=== PATIENT | female | born 1980 ===

== ENCOUNTER 2021-12-16 13:11 | Inpatient (IN) | payer SELFPAY ==
[2021-12-16] MEDS ORDERED: LACTATED RINGERS 1,000 ML ONE (14:59)
[2021-12-16] MEDS ORDERED: TERBUTALINE 1 MG/1 ML INJ SUB-Q PRN (15:21)
[2021-12-16] MEDS ORDERED: CARBOPROST TROMETHAMINE 250 MCG/1 ML INJ IM PRN (15:21)
[2021-12-16] MEDS ORDERED: ACETAMINOPHEN 325 MG TAB PO PRN ×2 (15:21→18:46)
[2021-12-16] MEDS ORDERED: miSOPROStol 200 MCG TAB PR PRN (15:21)
[2021-12-16] MEDS ORDERED: LOPERAMIDE 2 MG CAP PO PRN (15:21)
[2021-12-16] MEDS ORDERED: ePHEDrine SULFATE 50 MG/1 ML INJ IV PRN (15:21)
[2021-12-16] MEDS ORDERED: BUTORPHANOL 2 MG/1 ML INJ IV PRN ×2 (15:21)
[2021-12-16] MEDS ORDERED: OXYTOCIN 10 UNIT/1 ML INJ IM PRN (15:21)
[2021-12-16] MEDS ORDERED: METHYLERGONOVINE MALEATE 0.2 MG/ML VIAL IM PRN (15:21)
[2021-12-16] MEDS ORDERED: fentaNYL 100 MCG/2 ML INJ IV PRN (15:21)
[2021-12-16] MEDS ORDERED: MINERAL OIL 30 ML ORAL LIQD PO PRN (15:21)
[2021-12-16] MEDS ORDERED: LACTATED RINGERS 1,000 ML IV SCH (15:30)
[2021-12-16] MEDS ORDERED: LIDOCAINE (2%) 20 MG/1 ML VIAL 20 ML MDV INFILTRATI ONE (15:45)
[2021-12-16] MEDS ORDERED: OXYTOCIN DRIP 30 UNITS/500 ML BAG IV SCH ×2 (16:00)
[2021-12-16 16:37] LABS: Hematocrit 34.6 % (30.3-42.9); Hemoglobin 12.1 gm/dl (10.1-14.3); Mean Corpuscular HGB Conc 35 % (30-34); Mean Corpuscular Volume 98 fl (79-97); Platelet Count 209 K/mm3 (140-440); Red Blood Count 3.52 M/mm3 (3.65-5.03)
--- NOTE | 2021-12-16 18:42 | History and Physical Report ---
History of Present Illness Date of examination: 12/16/21 Date of admission: 12/16/21 15:25 Chief complaint: SROM, active contractions History of present illness: Walk-in. 39 wks. SROM. Meconium. RAMU 12/23/21 Past History Past Medical History: no pertinent history - Obstetrical History Expected Date of Delivery: 12/23/21 Actual Gestation: 39 Week(s) 0 Day(s) : 5 Para: 3 Medications and Allergies Allergies Allergy/AdvReac Type Severity Reaction Status Date / Time No Known Allergies Allergy Unverified 12/16/21 15:06 Home Medications Medication Instructions Recorded Confirmed Last Taken Type Vitamin 1 tab PO DAILY 12/16/21 12/16/21 12/15/21 12:00 History Active Meds: Active Medications Acetaminophen (Acetaminophen 325 Mg Tab) 650 mg PO Q4H PRN PRN Reason: Pain, Mild (1-3) Butorphanol Tartrate (Butorphanol 2 Mg/1 Ml Inj) 1 mg IV Q2H PRN PRN Reason: Pain, Moderate(4-6) LABOR PAIN Butorphanol Tartrate (Butorphanol 2 Mg/1 Ml Inj) 2 mg IV Q2H PRN PRN Reason: Pain , Severe (7-10) Carboprost Tromethamine (Carboprost Tromethamine 250 Mcg/1 Ml Inj) 250 mcg IM ONCE PRN PRN Reason: Uterine Bleeding Ephedrine Sulfate (Ephedrine Sulfate 50 Mg/1 Ml Inj) 10 mg IV Q2M PRN PRN Reason: Hypotension Fentanyl (Fentanyl 100 Mcg/2 Ml Inj) 100 mcg IV Q2H PRN PRN Reason: Pain,Severe (7-10) LABOR PAIN Oxytocin/Sodium Chloride (Pitocin/Ns 30 Unit/500ml) 30 units in 500 mls @ 2 mls/hr IV TITR CRISTOFER; Protocol Last Admin: 12/16/21 17:26 Dose: 999 ml/hr, 999 mls/hr Lactated Ringer's (Lactated Ringers) 1,000 mls @ 125 mls/hr IV DIRECT CRISTOFER Last Admin: 12/16/21 16:40 Dose: 125 mls/hr Oxytocin/Sodium Chloride (Pitocin/Ns 30 Unit/500ml) 30 units in 500 mls @ 40 mls/hr IV TITR CRISTOFER; Protocol Last Admin: 12/16/21 18:16 Dose: 165 ml/hr, 165 mls/hr Loperamide HCl (Loperamide 2 Mg Cap) 2 mg PO ONCE PRN PRN Reason: give with Hemabate Methylergonovine Maleate (Methylergonovine Maleate 0.2 Mg/Ml Vial) 0.2 mg IM ONCE PRN PRN Reason: Uterine Bleeding Mineral Oil (Mineral Oil 30 Ml Oral Liqd) 30 ml PO QHS PRN PRN Reason: Constipation Misoprostol (Misoprostol 200 Mcg Tab) 800 mcg VA ONCE PRN PRN Reason: Uterine Bleeding Oxytocin (Oxytocin 10 Unit/1 Ml Inj) 10 unit IM ONCE PRN PRN Reason: Uterine Bleeding Terbutaline Sulfate (Terbutaline 1 Mg/1 Ml Inj) 0.25 mg SUB-Q ONCE PRN PRN Reason: Hyperstimulation/Hypertonicity Review of Systems All systems: negative Genitourinary: leakage of fluid, contractions - Vital Signs Vital signs: Vital Signs Pulse BP 95 H 114/76 12/16/21 13:43 12/16/21 13:43 Temp Pulse Resp BP Pulse Ox 98.5 F 96 H 20 118/78 99 12/16/21 13:45 12/16/21 18:36 12/16/21 13:45 12/16/21 18:36 12/16/21 18:34 - Physical Exam Lungs: Positive: Normal air movement Abdomen: Positive: normal appearance, distention Genitourinary (Female): Positive: normal external genitalia Vulva: both: normal Vagina: Positive: normal moisture. Negative: discharge Cervix: Negative: lesion, discharge Uterus: Positive: enlarged, normal contour Anus/Rectum: Positive: normal perianal skin, heme negative. Negative: rectal mass, hemorrhoids Extremities: Deep Tendon Reflex Grade: Normal +2 - Obstetrical FHR: auscultation normal Cervical Dilatation: 6 (meconium. IUPC placed.) Cervical Effacement Percentage: 100 station: 0 Uterine Contraction Pattern: Regular Uterine Contraction Intensity: Strong/Firm Results Result Diagrams: 12/16/21 15:00 Abnormal lab results 12/16/21 Range/Units 15:00 RBC 3.52 L (3.65-5.03) M/mm3 MCV 98 H (79-97) fl MCH 34 H (28-32) pg MCHC 35 H (30-34) % All other labs normal. Assessment and Plan - Patient Problems (1) Meconium in amniotic fluid Current Visit: Yes Status: Acute (2) with 39 completed weeks gestation Current Visit: Yes Status: Acute (3) Active labor at term Current Visit: Yes Status: Acute Plan to address problem: Vag delivery imminent.
--- NOTE | 2021-12-16 18:45 | Procedure Note ---
OB Delivery Note - Delivery Date of Delivery: 12/16/21 Surgeon: AKIRA LIZ Estimated blood loss: <100cc - Vaginal Delivery presentation: vertex Delivery position: OA Intrapartum events: meconium Delivery induction: none Delivery monitor: external FHT, internal uterine Route of delivery: Delivery placenta: spontaneous Delivery cord: 3 umbilical vessels Episiotomy: none Delivery laceration: 2nd degree Delivery repair: vicryl Anesthesia: local (10cc 1% plain lidocaine.) - Infant A at 1 minute: 8 at 5 minutes: 9 Infant Gender: Male
[2021-12-16] MEDS ORDERED: diphenhydrAMINE 25 MG CAP PO PRN (18:46)
[2021-12-16] MEDS ORDERED: LANOLIN/ZINC/DIMETHICONE (LANSINOH) 7 GM TP PRN (18:46)
[2021-12-16] MEDS ORDERED: ONDANSETRON 4 MG/2 ML INJ IV PRN (18:46)
[2021-12-16] MEDS ORDERED: WITCH HAZEL/ GLYCERIN PAD TP PRN (18:46)
[2021-12-16] MEDS ORDERED: PROMETHAZINE 25 MG TAB PO PRN (18:46)
[2021-12-16] MEDS ORDERED: PROMETHAZINE 25 MG RECT SUPP PR PRN (18:46)
[2021-12-16] MEDS ORDERED: MAGNESIUM HYDROXIDE (MOM) ORAL LIQD UDC PO PRN (18:46)
[2021-12-16] MEDS ORDERED: HYDROcodone/ACETAMINOPHEN 5-325 MG TAB PO PRN (18:53)
[2021-12-16] MEDS ORDERED: KETOROLAC 30 MG/1 ML INJ IV PRN (18:53)
[2021-12-16] MEDS ORDERED: IBUPROFEN 800 MG TAB PO SCH (19:00)
[2021-12-16] MEDS: DOCUSATE SODIUM 100 MG CAP PO SCH (23:32)
[2021-12-17] MEDS: IBUPROFEN 800 MG TAB PO SCH ×3 (05:36→23:14)
[2021-12-17] MEDS ORDERED: PRENATAL VIT27-FE FUMARATE-FOLIC ACID VIT TAB PO SCH (10:00)
[2021-12-17 10:56] LABS: Hematocrit 32.1 % (30.3-42.9); Hemoglobin 10.8 gm/dl (10.1-14.3)
--- NOTE | 2021-12-17 13:10 | Progress Note ---
Assessment and Plan - Patient Problems (1) Meconium in amniotic fluid Current Visit: Yes Status: Resolved (2) with 39 completed weeks gestation Current Visit: Yes Status: Resolved (3) Active labor at term Current Visit: Yes Status: Resolved (4) Status post vaginal delivery Current Visit: Yes Status: Acute Plan to address problem: Stable. Subjective - Subjective Date of service: 12/17/21 Principal diagnosis: Status post vag delivery day 1. Interval history: Walk-in. 39 wks. SROM. Meconium. RAMU 12/23/21 Patient reports: appetite normal, voiding normally, pain well controlled, ambulating normally [place]: doing well Objective - Vital Signs Latest vital signs: Vital Signs Temp Pulse Resp BP BP Pulse Ox Pulse Ox 12/17/21 08:00 98 12/17/21 07:28 97.8 F 64 18 99/56 97 12/17/21 05:34 98 12/17/21 05:06 97.6 F 73 18 112/68 92 12/17/21 03:30 98 12/17/21 01:10 98 12/17/21 00:02 97.8 F 69 18 103/63 96 12/16/21 23:30 97 12/16/21 21:55 98.7 F 74 18 114/68 99 98 12/16/21 20:03 81 116/72 12/16/21 19:15 98 12/16/21 19:09 92 H 99 12/16/21 19:06 92 H 127/79 12/16/21 19:04 88 99 12/16/21 18:59 92 H 100 12/16/21 18:54 85 100 12/16/21 18:51 83 136/75 12/16/21 18:49 91 H 99 12/16/21 18:45 97.8 F 20 12/16/21 18:44 86 99 12/16/21 18:39 91 H 99 12/16/21 18:36 96 H 118/78 12/16/21 18:34 90 99 12/16/21 18:29 94 H 99 12/16/21 18:24 81 99 12/16/21 18:21 88 114/65 12/16/21 18:19 98 H 99 12/16/21 18:14 89 98 12/16/21 18:09 92 H 99 12/16/21 18:06 99 H 115/62 12/16/21 18:04 95 H 99 12/16/21 17:59 100 H 99 12/16/21 17:54 97 H 98 12/16/21 17:50 102 H 122/63 12/16/21 17:49 103 H 99 12/16/21 17:45 98.5 F 100 H 20 121/60 12/16/21 17:44 107 H 98 12/16/21 17:40 105 H 114/58 12/16/21 17:39 113 H 99 12/16/21 17:35 97 H 109/57 12/16/21 17:34 102 H 99 12/16/21 17:30 94 H 109/56 12/16/21 17:29 103 H 98 12/16/21 17:25 107 H 118/59 12/16/21 17:24 107 H 99 12/16/21 17:19 148 H 98 12/16/21 17:15 107 H 136/67 12/16/21 17:14 120 H 100 12/16/21 17:09 115 H 99 12/16/21 17:04 119 H 98 12/16/21 16:59 112 H 97 12/16/21 16:54 114 H 99 12/16/21 16:49 111 H 99 12/16/21 16:44 99 H 120/81 98 12/16/21 16:39 93 H 98 12/16/21 16:34 99 H 98 12/16/21 16:29 84 99 12/16/21 16:24 96 H 99 12/16/21 16:19 88 99 12/16/21 16:14 89 120/77 98 12/16/21 16:09 88 99 12/16/21 16:04 90 99 12/16/21 15:59 83 99 12/16/21 15:54 85 99 12/16/21 15:49 87 98 12/16/21 15:45 98.7 F 20 12/16/21 15:44 96 H 98 12/16/21 15:43 83 135/75 12/16/21 15:39 83 99 12/16/21 15:34 86 99 12/16/21 15:29 89 99 12/16/21 15:24 93 H 97 12/16/21 15:20 98 12/16/21 15:19 89 98 07/25/22 15:14 81 123/77 98 12/16/21 15:09 88 98 12/16/21 15:04 99 H 98 12/16/21 14:59 87 99 12/16/21 14:54 108 H 98 12/16/21 14:49 86 98 12/16/21 14:44 89 98 12/16/21 14:43 96 H 112/78 12/16/21 14:39 99 H 99 12/16/21 14:34 86 98 12/16/21 14:29 94 H 98 12/16/21 14:24 93 H 98 12/16/21 14:19 99 H 98 12/16/21 14:14 101 H 119/78 99 12/16/21 14:09 90 98 12/16/21 14:04 87 98 12/16/21 13:59 86 98 12/16/21 13:54 85 97 12/16/21 13:49 102 H 98 12/16/21 13:45 98.5 F 20 98 12/16/21 13:44 103 H 98 12/16/21 13:43 95 H 114/76 Intake and Output 12/16/21 12/17/21 12/17/21 23:59 07:59 15:59 Intake Total 240 120 Output Total 200 400 Balance -200 -160 120 Intake: Oral 240 120 Output: Urine 200 400 Void 200 400 Other: Total, Intake Amount 120 120 Total, Output Amount 200 400 # Voids Void 1 1 1 Estimated Blood Loss 100 - Exam Lungs: Present: Normal air movement Abdomen: Present: normal appearance, soft, normal bowel sounds Uterus: Present: normal, firm Extremities: Present: normal Deep Tendon Reflex Grade: Normal +2 - Labs Labs: Abnormal lab results 12/16/21 Range/Units 15:00 RBC 3.52 L (3.65-5.03) M/mm3 MCV 98 H (79-97) fl MCH 34 H (28-32) pg MCHC 35 H (30-34) %
--- NOTE | 2021-12-17 13:12 | Discharge Summary ---
Providers - Providers Date of Admission: 12/16/21 15:25 Date of discharge: 12/18/21 Attending physician: AKIRA LIZ MD Primary care physician: AKIRA LIZ MD Hospitalization Reason for admission: active labor, rupture of membranes, IUP at term Delivery: Episiotomy: none Laceration: 2nd degree Other procedures: none complications: none Discharge diagnosis: IUP at term delivered [place] baby: male Condition at discharge: Good Disposition: 01 HOME / SELF CARE / HOMELESS - Discharge Diagnoses (1) Meconium in amniotic fluid Status: Resolved (2) with 39 completed weeks gestation Status: Resolved (3) Active labor at term Status: Resolved (4) Status post vaginal delivery Status: Acute Plan - Provider Discharge Summary Activity: routine, no sex for 6 weeks, no heavy lifting 4 weeks, no strenuous exercise Diet: routine Instructions: routine Additional instructions: [] Smoking cessation referral if applicable(refer to patient education folder for contact #) [] Refer to [facility] Booklet Call your doctor immediately for: * Fever > 100.5 * Heavy vaginal bleeding ( >1 pad per hour) * Severe persistent headache * Shortness of breath * Reddened, hot, painful area to leg or breast * Drainage or odor from incision. * Keep incision clean and dry at all times and follow doctor's instructions regarding bathing/showering - Follow up plan Follow up: AKIRA LIZ MD [Primary Care Provider] - 7 Days
[2021-12-17] MEDS: DOCUSATE SODIUM 100 MG CAP PO SCH (23:14)
[2021-12-18] MEDS: IBUPROFEN 800 MG TAB PO SCH ×2 (05:57→15:22)
[2021-12-18 10:20] VITALS: BP 125/75
[2021-12-18] MEDS: DOCUSATE SODIUM 100 MG CAP PO SCH (15:21)
[2021-12-18] MEDS ORDERED: MEASLES, MUMPS & RUBELLA 12,500 UNIT/0.5 ML VACCINE SUB-Q ONE (15:24)
== END 2021-12-18 16:50 | disposition home or self-care (01) | DRG 807 ==
LOC: TRG 13:11 → EDBD 13:11 → LD 13:12 → TRG 15:31 → OB 21:40
PROVIDERS: ADMIT Obstetrics & Gynecology; ATTEND Obstetrics & Gynecology
PROC: 10E0XZZ Delivery of Products of Conception, External Approach (ICD-10-PCS; principal; 2021-12-16)
PROC: 0KQM0ZZ Repair Perineum Muscle, Open Approach (ICD-10-PCS; 2021-12-16)
PROC: 3E0234Z Introduction of Serum, Toxoid and Vaccine into Muscle, Percutaneous Approach (ICD-10-PCS; 2021-12-18)
DX: O77.0 Labor and delivery complicated by meconium in amniotic fluid (principal); Z37.0 Single live birth; Z3A.39 39 weeks gestation of pregnancy; Z23 Encounter for immunization; O70.1 Second degree perineal laceration during delivery
CPT/HCPCS: 36415; 85014; 85018; 85027; 86850; 86900; 86901; 88307; 90707; G0378; J3490; J2590; J7120; U0003